=== PATIENT | female | born 1990 | race Caucasian/White ===

== ENCOUNTER 2021-08-02 11:18 | Outpatient (CLI) | payer BC, SELFPAY ==
[2021-08-02 11:43] LABS: Basophils Percent Auto 0.5 % (0.2-1.2); Eosinophils Percent Auto 0.2 % (0-4.4); Hematocrit 38.9 % (37.0-47.0); Hemoglobin 13.4 g/dL (12.0-15.0); Immature Granulocyte Absolute 0.02 K/mm3 (0.00-0.031); Immature Granulocyte Percent A 0.3 % (0-0.5); Lymphocytes Absolute Auto 1.08 K/mm3 (0.9-3.2); Lymphocytes Percent Auto 17.6 % (18.3-44.2); Mean Corpuscular HGB Conc 34.4 g/dl (32-36); Mean Corpuscular Hemoglobin 30.6 pg (26-34); Mean Corpuscular Volume 88.8 fl (80-100); Mean Platelet Volume 11.3 fl (7.4-10.4); Monocytes Absolute Auto 0.2 K/mm3 (0.1-0.6); Monocytes Percent Auto 3.9 % (2.6-8.5); Neutrophils Absolute Auto 4.8 K/mm3 (1.3-6.7); Neutrophils Percent Auto 77.5 % (45.5-73.1); Platelet Count Result 162 k/mm3 (150-375); Red Blood Count 4.38 M/mm3 (4.2-5.4); Red Cell Distribution Width 11.9 % (11.5-14.5); White Blood Count 6.2 K/mm3 (4.5-10.0)
[2021-08-02 12:40] LABS: HIV 1/2 Ab P24 Ag Result Negative (Negative)
[2021-08-02 13:05] LABS: Hepatitis B Surface Antigen Negative (Negative); Rubella IgG Antibody 26.2 IU/ML
[2021-08-03 06:02] LABS: Rapid Plasma Reagin Non-Reactive (NonReactive)
[2021-08-13 13:27] LABS: SMA Results Received Complete
[2021-08-13 18:20] LABS: CF Result NEGATIVE (NEGATIVE)
== END 2021-08-02 11:19 | disposition home or self-care (01) ==
PROVIDERS: PCP Family Medicine; Visit Provider Obstetrics & Gynecology
DX: N94.89 Other specified conditions associated with female genital organs and menstrual cycle (principal)
CPT/HCPCS: 36415; 81220; 81329; 84702; 85025; 86592; 86644; 86703; 86747; 86762; 86787; 86850; 86900; 86901; 87340; G0432

== ENCOUNTER 2021-12-07 08:49 | Outpatient (CLI) | payer BC, SELFPAY ==
[2021-12-07 10:19] LABS: Basophils Percent Auto 0.5 % (0.2-1.2); Eosinophils Percent Auto 0.5 % (0-4.4); Hematocrit 33.1 % (37.0-47.0); Immature Granulocyte Absolute 0.04 K/mm3 (0.00-0.031); Immature Granulocyte Percent A 0.5 % (0-0.5); Lymphocytes Absolute Auto 1.23 K/mm3 (0.9-3.2); Mean Corpuscular HGB Conc 33.2 g/dl (32-36); Mean Corpuscular Volume 90.2 fl (80-100); Mean Platelet Volume 10.1 fl (7.4-10.4); Monocytes Absolute Auto 0.5 K/mm3 (0.1-0.6); Monocytes Percent Auto 5.1 % (2.6-8.5); Neutrophils Percent Auto 79.4 % (45.5-73.1); Platelet Count Result 158 k/mm3 (150-375); Red Blood Count 3.67 M/mm3 (4.2-5.4); Red Cell Distribution Width 11.9 % (11.5-14.5); White Blood Count 8.8 K/mm3 (4.5-10.0)
[2021-12-07 10:26] LABS: Glucose 1 Hour PP 50gm Dose 151 mg/dL
[2021-12-07 11:07] LABS: HIV 1/2 Ab P24 Ag Result Negative (Negative)
== END 2021-12-07 08:50 | disposition home or self-care (01) ==
LOC: ANHLAB 08:51
PROVIDERS: PCP Family Medicine; Visit Provider Obstetrics & Gynecology
DX: Z34.90 Encounter for supervision of normal pregnancy, unspecified, unspecified trimester (principal); Z3A.00 Weeks of gestation of pregnancy not specified
CPT/HCPCS: 36415; 82947; 85025; 86703; G0432

== ENCOUNTER 2021-12-10 08:17 | Outpatient (CLI) | payer BC, SELFPAY ==
[2021-12-10 08:53] LABS: Glucose Fasting Gestational 80 mg/dL (>/=95)
[2021-12-10 10:25] LABS: Glucose 1 Hour Gest 190 mg/dL (>/=180)
[2021-12-10 11:11] LABS: Glucose 2 Hour Gest 148 mg/dL (>/= 155)
[2021-12-10 12:15] LABS: Glucose 3 Hour Gest 171 mg/dL (>/=140)
== END 2021-12-10 08:18 | disposition home or self-care (01) ==
LOC: ANHLAB 08:19
PROVIDERS: PCP Family Medicine; Visit Provider Obstetrics & Gynecology
DX: O99.810 Abnormal glucose complicating pregnancy (principal); Z3A.00 Weeks of gestation of pregnancy not specified
CPT/HCPCS: 36415; 82951; 82952

== ENCOUNTER 2022-02-21 13:25 | Outpatient (RCR) | payer BC, SELFPAY ==
[2022-02-14 10:01] VITALS: BP 109/75; PULSE 84
[2022-02-17 15:09] VITALS: BP 120/80; PULSE 103
[2022-02-21 14:06] LABS: Mean Corpuscular HGB Conc 32.3 g/dl (32-36); Mean Corpuscular Hemoglobin 25.8 pg (26-34); Mean Corpuscular Volume 80.1 fl (80-100); Mean Platelet Volume 11.3 fl (7.4-10.4); Platelet Count Result 182 k/mm3 (150-375); Red Blood Count 3.87 M/mm3 (4.2-5.4); White Blood Count 8.8 K/mm3 (4.5-10.0)
[2022-02-21 14:25] VITALS: BP 123/83; PULSE 102
[2022-02-22 07:11] LABS: Rapid Plasma Reagin Non-Reactive (NonReactive)
== END 2022-03-23 10:12 | disposition home or self-care (01) ==
LOC: ANHOBOP 13:25
PROVIDERS: PCP Family Medicine; Visit Provider Obstetrics & Gynecology
DX: O36.5930 Maternal care for other known or suspected poor fetal growth, third trimester, not applicable or unspecified (principal); Z3A.37 37 weeks gestation of pregnancy; Z3A.38 38 weeks gestation of pregnancy
CPT/HCPCS: 36415; 59025; 85027; 86592; 86850; 86900; 86901

== ENCOUNTER 2022-02-23 05:17 | Inpatient (IN) | payer BC, SELFPAY ==
--- NOTE | 2022-02-22 15:09 | PM.IMHP ---
H&P: HPI History of Present Illness Date/Time: 02/22/22 15:09 31-year-old female 2 para 1001 at 39 weeks gestation presents for repeat delivery. Also desires permanent sterilization in the form of bilateral salpingectomy, And we have discussed the permanence failure rate increased risk of ectopic and regret and patient consents to the procedure. care complicated by gestational diabetes which has been diet controlled with excellent results. No other issues or concerns with her care. Chief Complaint: Review of Systems Review of Systems: All systems reviewed & are unremarkable except as noted in HPI and below PMFSH Past Medical History Medical History Abnormal glucose tolerance in Anxiety disorder delivery delivered 04/15/17 arrest of dilation Depression Elbow fracture Ovarian cyst Remove/insert IUD 03/17/20 insertion 10/28/20 removal Suppression of menstruation Surgical History Surgical History Delivery by section (04/15/17) arrest of dilation History of placement of ear tubes 1994 bilateral Social History Social History Smoking status: Never smoker Alcohol intake: never Substance use: never Substance use type: does not use Additional living arrangements comments: spouse 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 Gender identity (if verbalized by the patient): Female Sexual Orientation (if Verbalized by the Patient): Straight or Heterosexual Spiritual care concerns: No Meds Home Medications and Allergies Home Medications Medication Instructions Recorded Confirmed Type vitamins-iron fumarate 65 1 tablet PO DAILY 07/26/21 02/21/22 History mg iron-folic acid 1 mg tablet Allergies Allergy/AdvReac Type Severity Reaction Status Date / Time amoxicillin Allergy Severe STOP Verified 02/21/22 09:20 BREATHING cefixime Allergy Severe STOP Verified 02/21/22 09:20 BREATHING Penicillins Allergy Severe STOP Verified 02/21/22 09:20 BREATHING Exam Const: General: cooperative, healthy appearing and comfortable Resp: Effort & Inspection: normal respiratory effort Auscultation: clear to auscultation bilaterally Cardio: Rate: regular rate Rhythm: regular rhythm GI: Inspection: normal to inspection Auscultation: normal bowel sounds : Bimanual exam- vagina & uterus: enlarged ( fundal height 40cm heart tones 130) Assessment and Plan Assessment and plan (1) 39 weeks gestation of : Code(s): Z3A.39 - 39 weeks gestation of Status: Acute (2) Previous delivery, antepartum: Code(s): O34.219 - Maternal care for unspecified type scar from previous delivery Status: Acute Assessment and Plan: proceed with repeat delivery. (3) Encounter for female sterilization procedure: Code(s): Z30.2 - Encounter for sterilization Status: Acute Assessment and Plan: Bilateral salpingectomy to be performed.
[2022-02-23] VITALS (57 sets, daily range): BP systolic 97–117; BP diastolic 42–92; PULSE 33–188; RESP 12–18; TEMP 36.3–36.8; O2SAT 84–100; BMI 31.6
--- OUTSIDE RECORDS SUMMARY | 2022-02-23 05:23 | XMS_ITS ---
:1990 Author Care Team Providers Name Role Phone Dixon Cardenas Primary Care Provider Unavailable Allergies Code Code System Name Reaction Severity Status Onset 723 RxNorm Amoxicillin ? ? Active ? Penicillins ? ? Active ? 951317 RxNorm Suprax ? ? Active ? Notes: Some allergies listed in Docume nt: #[id number] could not be added to this patient's chart. Please review this docu ment and add these allergies to the patient's chart manually as needed. Medications Name Status Start Date Stop Date ? ? Adacel (Tdap Adolesn/Adult)(PF)2 Completed ? 05/31/2017 Lf-(2.5-5-3-5)-5 Lf/0.5 mL IM syringe alprazolam 0.25 mg tablet Completed ? 2019 Aviane 0.1 mg-20 mcg tablet Completed ? 10/24 azithromycin 250 mg tablet Completed ? 08/07 cephalexin 500 mg capsule Completed ? 2016 cyclobenzaprine 10 mg tablet Completed ? cyclobenzaprine 5 mg tablet Unknown ? Not available Take 1 tablet 3 times a day by oral route. erythromycin 5 mg/gram (0.5 %) eye ointment Completed ? 09/19/2016 fluconazole 150 mg tablet Active ? Not av ailable TAKE 1 TABLET BY MOUTH ONCE DAILY FOR 3 DAYS Fluzone Quad (PF) 60 mcg (15 mcg x Active ? Not available 4)/0.5 mL IM syringe Fluzone Quad (PF) 60 mcg (15 mcg x Active ? Not available 4)/0.5 mL IM syringe hydrocodone 5 mg-acetaminophen 325 mg tablet Completed ? 05/02/2017 ID NOW COVID-19 Test Kit Active ? Not sathish ilable TEST DIRECTED TODAY Jencycla 0.35 mg tablet Completed ? 02/13/20 ketorolac 10 mg tablet Completed ? 0
--- OUTSIDE RECORDS SUMMARY | 2022-02-23 05:23 | XMS_ITS ---
:1990 Author Care Team Providers Name Role Phone Dixon Cardenas Primary Care Provider Unavailable Allergies Code Code System Name Reaction Severity Status Onset 723 RxNorm Amoxicillin ? ? Active ? Penicillins ? ? Active ? 019551 RxNorm Suprax ? ? Active ? Notes: Some allergies listed in Docume nt: #[id number] could not be added to this patient's chart. Please review this docu ment and add these allergies to the patient's chart manually as needed. Medications Name Status Start Date Stop Date ? ? Adacel (Tdap Adolesn/Adult)(PF)2 Lf-(2.5-5-3-5)-5 Lf/0.5 Complet ed ? 05/31/2017 mL IM syringe alprazolam 0.25 mg tablet Completed ? 2019 Aviane 0.1 mg-20 mcg tablet Completed ? 10/24 azithromycin 250 mg tablet Completed ? 08/07 cephalexin 500 mg capsule Completed ? 2016 cyclobenzaprine 10 mg tablet Completed ? cyclobenzaprine 5 mg tablet Unknown ? Not available TK 1 T PO TID erythromycin 5 mg/gram (0.5 %) eye ointment Completed ? 09/19/2016 Fluzone Quad (PF) 60 mcg (15 mcg x 4)/0.5 mL IM syring e Active ? Not available PHARMACIST ADMINISTERED IMMUNIZATION ADMINISTERED AT TIME OF DI SPENSING Fluzone Quad (PF) 60 mcg (15 mcg x 4)/0.5 mL IM syring e Active ? Not available PHARMACY ADMINISTERED hydrocodone 5 mg-acetaminophen 325 mg tablet Completed ? 05/02/2017 Jencycla 0.35 mg tablet Completed ? 02/13/20 18 ketorolac 10 mg tablet Completed ? 0 L norgest/E estradiol-E estrad 0.15 mg-30 mcg (84)/10 mcg(7) tabs,3mos Completed ? 02/21/2020 TAKE 1 TABLET BY MOUTH ONCE DAILY levofloxacin 250 m
--- NOTE | 2022-02-23 06:09 | LDADM ---
This patient, Myranda Kerr, was admitted to Labor/Delivery/Recovery 120 on 02/23/22 at 05:17. Plans for labor, pain management and were discussed with patient. Patient/family oriented to hospital policies and general routines including ID bracelet, bed and alarms, visiting hours, pain management, procedures, bathroom and other care routines, personal items, smoking policy, room service/diet and guest tray routines, security routines, and visiting hours. Patient/Family are encouraged to report perceived risks to care and to ask questions if they do not understand what they are told or what they should do. See OBIX for further documentation.
[2022-02-23] MEDS: LACTATED RINGERS 1,000 ML 125 ML IV CONT (06:39)
--- NOTE | 2022-02-23 07:19 | P.PNAN_ITS ---
Anes - Initial Pre Proc Eval Procedure: Operation Date: 02/23/22 07:30 Proposed Procedures p Repeat Section with Tubal Ligation - Dixon Cardenas MD Date/Time: 02/23/22 07:19 Surgeon: Dixon Cardenas MD Pre Op Diagnosis: C/S Patient Data Age: 31 Gender: F Height: 1.5 m Weight: 71 kg Last Vital Signs Temp 36.7 C 02/23/22 06:07 Pulse 96 02/23/22 07:16 Resp 16 02/23/22 06:07 BP 112/74 02/23/22 07:16 O2 Del Method Room Air 02/23/22 06:07 Allergies Allergy/AdvReac Type Severity Reaction Status Date / Time amoxicillin Allergy Severe STOP Verified 02/23/22 06:13 BREATHING cefixime Allergy Severe STOP Verified 02/23/22 06:13 BREATHING Penicillins Allergy Severe STOP Verified 02/23/22 06:13 BREATHING Home Medications Medication Instructions Recorded Confirmed Type vitamins-iron fumarate 65 1 tablet PO DAILY 07/26/21 02/23/22 History mg iron-folic acid 1 mg tablet Patient hx anesthesia problems: none Family hx anesthesia problems: none Results Review: All pre-operative results and documents have been reviewed as part of the pre- operative evaluation. [facility] Past Medical History Medical History Abnormal glucose tolerance in Anxiety disorder delivery delivered 04/15/17 arrest of dilation Depression Elbow fracture Ovarian cyst Remove/insert IUD 03/17/20 insertion 10/28/20 removal Suppression of menstruation Surgical History Surgical History Delivery by section (04/15/17) arrest of dilation History of placement of ear tubes 1994 bilateral Social History Social History Smoking status: Never smoker Alcohol intake: never Substance use: never Substance use type: does not use Additional living arrangements comments: spouse 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 Gender identity (if verbalized by the patient): Female Sexual Orientation (if Verbalized by the Patient): Straight or Heterosexual Spiritual care concerns: No Anes - Eval Final PreProcedure Day of Procedure 02/23/22 07:19 Patient weight: overweight Heart: regular rate and rhythm Lungs: clear to auscultation Airway: Mallampati scale class II Neurological: alert and oriented Last oral intake: >/= 8 hours ASA classification: II Emergent: no Anesthetic plan: proceed Anesthesia type and monitoring: regional spinal and standard monitoring Results Review: All pre-operative results and documents have been reviewed as part of the pre- operative evaluation. Informed Consent: The patient's anesthetic plan and its attendant risks and benefits were discussed with the patient/family/POA. Questions were solicited and answers provided to the satisfaction of the patient/family/POA.
[2022-02-23] MEDS: CLINDAMYCIN 900 MG/D5W 50 ML 900 MG/50 ML PIGGYBACK 50 MG IVPB (07:25)
--- NOTE | 2022-02-23 07:28 | WPDHPUPDATE1 ---
History and Physical Update Update Date/Time: 02/23/22 07:28 History and Physical has been reviewed, including an updated exam of the patient. There are NO changes in the patient's condition. Risks, benefits, and alternatives have been discussed and questions answered. Patient agrees to proceed with procedure.
[2022-02-23] MEDS: KETOROLAC 30 MG/ML VIAL (*BKC) 15 MG IV PUSH (08:09)
--- NOTE | 2022-02-23 08:44 | P.PCNOB_ITS ---
OB - Delivery Note Procedure Procedure: Procedures Operation Date: 02/23/22 07:30 <No data on this case meets the specified criteria> 1. Repeat low transverse section 2. Bilateral salpingectomy Events: Previous Delivery Delivery monitor: External FHT Route of delivery: Specimen: Yes ( 1. Tubes bilateral 2. Placenta) Quantitative Blood Loss (ml): 385 Anesthesia type: Spinal Disposition: PACU Complications: None Narrative: patient prepped draped usual manner for this procedure. Pfannenstiel incision was made and carried down to the fascia. Extended bilaterally the length of the skin incision. Moderate amount of adhesive disease was noted and sharply and bluntly dissected. peritoneum was entered And bladder flap was developed. uterus was scored with clear fluid noted and vertex was delivered without difficulty. Rest of baby was delivered cord clamped and cut and placenta manually removed. Uterus was exteriorized cleared of membranes and clots and closed using 0 Monocryl in a running interlocking manner with good approximation hemostasis noted. Small area of oozing on the left edge was rendered hemostatic using a [id number] suture with hemostasis achieved. Bilaterally tubes were then grasped and using 0 plain suture doubly ligated and the distal portion of the tube was removed. Uterus was turned to the abdomen gutters were cleared of serosanguineous fluid and clots and the uterine incision again noted to be hemostatic. All subfascial tissue she was noted be hemostatic and fascia was approximated 0 Vicryl from the left angle to midline and from the to the midline. Subcutaneous tissue was cauterized of small bleeders and approximating using 0 plain suture. Rachel were then used to approximate the skin edges and the patient was sent to recovery room after dressing was placed. [place] Baby Weeks of gestation at delivery: 39 gender: Female Weight (pounds): 7 Weight (ounces): 3 presentation: vertex Placenta delivery description: Manual Removal Cord Vessel Description: 3 Vessels score one minute: 8 score five minutes: 9 AMG Delivery Billing Delivery Delivery: Delivery Charge
[2022-02-23] MEDS: MORPHINE SULFATE INJ (*CRX) 10 MG/ML AMP 3 MG IV PUSH ×4 (09:45→11:04)
[2022-02-23] MEDS: ONDANSETRON INJ 4 MG/2 ML VIAL IV PUSH ×2 (09:49→13:49)
[2022-02-23] MEDS: OXYTOCIN 30 UNITS/NS 500 ML 30 UNITS/500 ML BAG 125 UNITS IV CONT (10:07)
--- NOTE | 2022-02-23 10:52 | PC.NURSE ---
Report given to JERRELL Walker
[2022-02-23] MEDS: KETOROLAC 30 MG/ML VIAL (*BKC) IV PUSH ×2 (12:19→18:46)
[2022-02-23] MEDS: DEXTROSE 5%/0.45% SOD CHL 1,000 ML 125 ML IV CONT (14:56)
[2022-02-23] MEDS: DOCUSATE SODIUM 100 MG CAPSULE PO (14:57)
[2022-02-23] MEDS: MULTIVIT/MIN/PREN/FOL AC/IRON TABLET 1 TAB PO (14:57)
[2022-02-23] MEDS: HYDROcodone/acetaminophen (*CRX) 5-325 MG TABLET 1 TAB PO (22:07)
[2022-02-24] MEDS: HYDROcodone/acetaminophen (*CRX) 10-325 MG TABLET 1 TAB PO (04:08)
[2022-02-24 04:30] VITALS: BP 98/58; PULSE 65; RESP 16; TEMP 36.7
[2022-02-24 05:30] LABS: Basophils Percent Auto 0.3 % (0.2-1.2); Eosinophils Percent Auto 0.1 % (0-4.4); Hematocrit 30.7 % (37.0-47.0); Hemoglobin 9.7 g/dL (12.0-15.0); Immature Granulocyte Absolute 0.05 K/mm3 (0.00-0.031); Immature Granulocyte Percent A 0.4 % (0-0.5); Lymphocytes Absolute Auto 1.12 K/mm3 (0.9-3.2); Lymphocytes Percent Auto 9.5 % (18.3-44.2); Mean Corpuscular HGB Conc 31.6 g/dl (32-36); Mean Corpuscular Hemoglobin 25.9 pg (26-34); Mean Corpuscular Volume 82.1 fl (80-100); Mean Platelet Volume 11.8 fl (7.4-10.4); Monocytes Absolute Auto 0.7 K/mm3 (0.1-0.6); Monocytes Percent Auto 6.3 % (2.6-8.5); Neutrophils Absolute Auto 9.8 K/mm3 (1.3-6.7); Neutrophils Percent Auto 83.4 % (45.5-73.1); Platelet Count Result 169 k/mm3 (150-375); Red Blood Count 3.74 M/mm3 (4.2-5.4); Red Cell Distribution Width 13.1 % (11.5-14.5); White Blood Count 11.8 K/mm3 (4.5-10.0)
--- NOTE | 2022-02-24 07:29 | P.PNAN_ITS ---
Anes - Prog Note Post-Op Date/Time: 02/24/22 07:29 Cardiovascular status: normal Respiratory status: normal Airway patency: baseline Mental status: baseline Post-Op hydration status: normal Vital Signs: Last Vital Signs Temp 36.7 C 02/24/22 04:30 Pulse 65 02/24/22 04:30 Resp 16 02/24/22 04:30 BP 98/58 L 02/24/22 04:30 Pulse Ox 97 02/23/22 16:40 O2 Del Method Room Air 02/23/22 23:55 Pain Score (VAS): 1 I/O: Intake & Output 02/23/22 02/23/22 02/24/22 15:59 23:59 07:59 Intake Total 240 1900 1250 Output Total 250 2250 1025 Balance -10 -350 225 Laboratory Tests 02/24/22 04:16 02/24/22 04:16 WBC 11.8 H RBC 3.74 L Hgb 9.7 L Hct 30.7 L MCV 82.1 MCH 25.9 L MCHC 31.6 L RDW 13.1 Plt Count 169 MPV 11.8 H Immature Gran % (Auto) 0.4 Neut % (Auto) 83.4 H Lymph % (Auto) 9.5 L [place] % (Auto) 6.3 Eos % (Auto) 0.1 Baso % (Auto) 0.3 Lymph # (Auto) 1.12 [place] # (Auto) 0.7 H Eos # (Auto) 0.0 Baso # (Auto) 0.0 Abs Immat Gran (auto) 0.05 H Absolute Neuts (auto) 9.8 H Absolute Nucleated RBC 0.0 Nucleated RBC % 0.0 Post-procedural complaints: none Patient Feedback: Patient satisfied with anesthetic care.
--- NOTE | 2022-02-24 07:29 | WPDANLDPN2 ---
Anes-Prog Note L&D Date/Time: 02/24/22 07:29 Comfortable throughout: section Neuraxial method: spinal Epidural/Spinal procedure site: clean & non-tender Neuro status: Neuro function grossly intact. Cardiovascular status: normal Respiratory status: normal Airway patency: baseline Mental status: baseline Post-Op hydration status: normal Vital Signs: Last Vital Signs Temp 36.7 C 02/24/22 04:30 Pulse 65 02/24/22 04:30 Resp 16 02/24/22 04:30 BP 98/58 L 02/24/22 04:30 Pulse Ox 97 02/23/22 16:40 O2 Del Method Room Air 02/23/22 23:55 Pain score (VAS): 1 I/O: Intake & Output 02/23/22 02/23/22 02/24/22 15:59 23:59 07:59 Intake Total 240 1900 1250 Output Total 250 2250 1025 Balance -10 -350 225 Post-procedural complaints: none Patient feedback: Patient satisfied with anesthetic care.
--- NOTE | 2022-02-24 07:30 | WPDANLDNPN2 ---
Anes-Prog Note L&D-Neuraxial Date/Time: 02/24/22 07:30 Neuraxial medications: intrathecal PF morphine Opiod-related complaints: pruritis Patient feedback: Patient satisfied with post-operative pain management.
--- NOTE | 2022-02-24 07:59 | PM.OBDSVD ---
DS: Admitting Diagnosis Discharge Date 02/25/2022 Admitting Diagnosis OB - DS: Summary OB Procedures : None OB Procedures Intrapartum: and Tubal ligation OB Procedures: : None Peripartum Data Procedures: Procedures Operation Date: 02/23/22 07:30 Actual Procedure Side Surgeon p Section Bilateral Dixon Cardenas MD Time Spent with Patient Time attestation: Total time spent providing and/or coordinating discharge services: DS: Data Data Completed and Pending Pending studies at discharge: Pending at discharge 02/23/22 09:09 Surgical [PTH] Routine Labs on day of discharge: Labs from last 24 hours 02/24/22 04:16 WBC 11.8 H RBC 3.74 L Hgb 9.7 L Hct 30.7 L MCV 82.1 MCH 25.9 L MCHC 31.6 L RDW 13.1 Plt Count 169 MPV 11.8 H Immature Gran % (Auto) 0.4 Neut % (Auto) 83.4 H Lymph % (Auto) 9.5 L Nelson % (Auto) 6.3 Eos % (Auto) 0.1 Baso % (Auto) 0.3 Lymph # (Auto) 1.12 Nelson # (Auto) 0.7 H Eos # (Auto) 0.0 Baso # (Auto) 0.0 Abs Immat Gran (auto) 0.05 H Absolute Neuts (auto) 9.8 H Absolute Nucleated RBC 0.0 Nucleated RBC % 0.0 Discharge Plan Discharge Discharging Clinician: Dixon Cardenas Patient Disposition: Home, Self-Care Activity: as tolerated Diet: as tolerated Wound Care Instructions: other - see discharge instructions Discharge Instructions: office one week for removal of dressing/arlene Patient Instructions: Antibiotic Form Stand Alone Forms: General Discharge Information Follow-up/Referrals: Dixon Cardenas MD [Physician] - 3 Weeks Discharge Medications: New hydrocodone-acetaminophen 5-325 mg Tablet 1 tablet PO Q3H PRN (Reason: Moderate Pain (4-6)) Qty: 30 0RF ibuprofen 600 mg Tablet 600 mg PO Q6H PRN (Reason: Cramping) Qty: 30 0RF Continued vit-iron fum-folic ac 65 mg iron- 1 mg tablet 1 tablet PO DAILY Date of admission: 02/23/22 05:17 Primary Care Provider: Lonnie,Minor Nair Admitting Provider: Dixon Cardenas Attending physician on admission: Dixon Cardenas Condition: Stable
[2022-02-24 08:40] VITALS: BP 103/68; PULSE 85; RESP 16; TEMP 36.6; O2SAT 100
[2022-02-24] MEDS: DOCUSATE SODIUM 100 MG CAPSULE PO ×2 (09:35→17:17)
[2022-02-24] MEDS: POLYSACCHARIDE IRON COMPLEX 150 MG CAPSULE PO ×2 (09:35→17:17)
[2022-02-24] MEDS: MULTIVIT/MIN/PREN/FOL AC/IRON TABLET 1 TAB PO (09:35)
[2022-02-24] MEDS: IBUPROFEN 600 MG TABLET PO ×2 (09:36→17:17)
[2022-02-24] MEDS: HYDROcodone/acetaminophen (*CRX) 5-325 MG TABLET 1 TAB PO ×3 (09:36→20:30)
--- NOTE | 2022-02-24 09:43 | PC.NURSE ---
Introductions were made this morning. Consulted with patient to assess needs related to . Mother led the conversation with her?plans to feed?her infant and states the?experience so far has been going well nursing without pain. Resources provided for inpatient and outpatient services using a resource guide and mom/baby guide. Mother voiced understanding of information and will call if there is a request for assistance. Reported to primary RN.
[2022-02-24 20:20] VITALS: BP 114/70; PULSE 92; RESP 18; TEMP 36.6; O2SAT 99
[2022-02-25 00:15] VITALS: BP 105/64; PULSE 80; RESP 16; TEMP 36.6; O2SAT 99
[2022-02-25] MEDS: IBUPROFEN 600 MG TABLET PO ×2 (00:48→08:41)
[2022-02-25 04:00] VITALS: BP 111/62; PULSE 72; RESP 16; TEMP 36.9; O2SAT 99
[2022-02-25 07:25] VITALS: BP 102/74; PULSE 76; RESP 16; TEMP 37.2; O2SAT 97
[2022-02-25] MEDS: MULTIVIT/MIN/PREN/FOL AC/IRON TABLET 1 TAB PO (08:40)
[2022-02-25] MEDS: POLYSACCHARIDE IRON COMPLEX 150 MG CAPSULE PO (08:40)
[2022-02-25] MEDS: DOCUSATE SODIUM 100 MG CAPSULE PO (08:40)
[2022-02-25] MEDS: HYDROcodone/acetaminophen (*CRX) 5-325 MG TABLET 1 TAB PO (08:43)
--- NOTE | 2022-02-25 09:30 | PC.NURSE ---
Patient viewed the discharge video Mother & Baby Care, The First Two Weeks . Patient was given the opportunity and encouraged to ask questions. Patient verbalized understanding of information shared and has been given the mother/baby guide for home reference.
[2022-02-26 10:18] VITALS: BP 114/78; PULSE 93; RESP 20; TEMP 36.8; O2SAT 98
--- NOTE | 2022-03-03 09:23 | PM.OBDSVD ---
DS: Admitting Diagnosis Discharge Date 02/25/22 Admitting Diagnosis OB - DS: Summary OB Procedures : None OB Procedures Intrapartum: (With tubal ligation) OB Procedures: : None Peripartum Data Procedures: Procedures Operation Date: 02/23/22 07:30 Actual Procedure Side Surgeon p Section Bilateral Dixon Cardenas MD Time Spent with Patient Time attestation: Total time spent providing and/or coordinating discharge services: DS: Data Data Completed and Pending Completed studies during hospitalization: Pending at discharge 02/23/22 09:09 Surgical [PTH] Routine Discharge Plan Discharge Consulting providers: Richard Smith ; Jayshree Botello Discharging Clinician: Dixon Cardenas Patient Disposition: Home, Self-Care Activity: as tolerated Diet: as tolerated Wound Care Instructions: other - see discharge instructions Discharge Instructions: Education: Mom and Baby Guide Given to: Mother Follow-Up: Call your delivering provider's office for an appointment to be seen in: 1 Week Mom and baby should come to the [facility] for the follow-up appointment. Appointment Date/Time: February 26, 2022 at 10:00 am What to expect at your follow-up visit: Blood Pressure Check Physical Assessment Call [phone] if you are unable to keep your appointment time. BREAST CARE: * Wear a snug supportive bra. * For engorgement discomfort: Breast Feeding: * Apply warm moist washcloths * Express milk as needed to relieve engorgement * Wear loose clothing Bottle Feeding: * May apply ice packs * For sore nipples: * Identify correct latch-on * Apply warm moist washcloths before and after nursing * Air dry nipples after nursing * May apply Lansinoh cream to nipples ABDOMINAL INCISION: (if applicable) * Allow incision to air dry * Do NOT use lotions for powders on your incision * When showering, allow soap and water to run over the incision, but do not wash incision EPISIOTOMY/PERINEAL CARE: * Until bleeding stops, use your shandra bottle after urinating * Change your pad frequently throughout the day * You may take sitz baths several times a day (fill your bathtub with warm water and soak for 20 minutes.) Do NOT bathe in the water * No tub baths until seen by your physician - You may shower ACTIVITY: * Rest as much as possible. * Do not exercise or lift anything heavier than your baby (such as laundry or other children.) * Avoid stairs or driving as much as possible. * Do not put anything into the vagina. No douching, tampons, or sexual activity until seen by physician. NOTIFY PHYSICIAN IF YOU HAVE ANY QUESTIONS OR IF ANY OF THE FOLLOWING SYMPTOMS OCCUR: * If your episiotomy or incision becomes red, swollen, or more painful than what you have experienced in the hospital. * If your vaginal bleeding becomes foul smelling. * If your vaginal bleeding becomes more heavy than a period or if your bleeding changes from pink to bright red. However, you may pass an occasional walnut-sized clot once or twice for the first week . * If you experience a sharp, shooting pain in you calves. * If you discover a hard, reddened area on your breast or if you experience flu-like symptoms. DIET: * Eat regular, well-balanced meals. * Drink plenty of fluids daily. If , drink to thirst. *Make an appointment at Dr Cardenas's office in one week for removal of dressing/arlene Patient Instructions: (DC) Stand Alone Forms: General Discharge Information Follow-up/Referrals: Dixon Cardenas MD [Physician] - 3 Weeks Discharge Medications: New hydrocodone-acetaminophen 5-325 mg Tablet 1 tablet PO Q3H PRN (Reason: Moderate Pain (4-6)) Qty: 30 0RF ibuprofen 600 mg Tablet 600 mg PO Q6H PRN (Reason: Cramping) Qty: 30 0RF Continued
== END 2022-02-25 10:06 | disposition home or self-care (01) | DRG 785 ==
LOC: ANHLDR 05:21 → ANHOB2 11:27
PROVIDERS: Admitting Provider Obstetrics & Gynecology; PCP Family Medicine; Visit Provider Obstetrics & Gynecology
PROC: 10D00Z1 Extraction of Products of Conception, Low, Open Approach (ICD-10-PCS; CPT 59514; principal; 2022-02-23 07:30)
DX: O34.219 Maternal care for unspecified type scar from previous cesarean delivery (principal); Z30.2 Encounter for sterilization; O24.420 Gestational diabetes mellitus in childbirth, diet controlled; Z3A.39 39 weeks gestation of pregnancy; Z37.0 Single live birth
CPT/HCPCS: 36415; 85025; 88302; A9270; J1580; J1885; J2270; J2274; J2370; J2405; J2590; J7120

== ENCOUNTER 2024-09-04 14:12 | Outpatient (CLI) | payer BC, SELFPAY ==
--- OUTSIDE RECORDS SUMMARY | 2024-09-04 15:58 | XMS_ITS | Encounter Summary ---
Author Organization [facility] Address [facility] [place] [address] Care Team Providers Care Systems Engineering Manager Name Role Phone Glen Lo MD Primary Care Provider [phone] Minor Fleming MD Primary Care Provider [phone] Encounter Details Date Type Department Care Team (Late st Contact Info) Description 04/29/2017 [place] [address] , Generic ConversionMD Social History Tobacco Use Types Packs/Day Years Used Date Smoking Tobacco: Never Assessed Comments Unknown Sex and Gender Information Value Date Recorded Sex Assigned at Not on file Legal Sex Female 9:01 PM CDT Gender Identity Not on file Sexual Orientation Not on file documented as of this encounter Plan of Treatment Not on file documented as of this encounter Visit Diagnoses Not on filedocumented in this encounter Care Teams Systems Engineering Manager Relationship Specialty Start Date End Date Glen Lo MD PCP - General 07/26/14 07/03/18 [place] [address] [place] [address] PCP - General FAMILY PRACTICE 07/04/18 documented as of this encounter
--- OUTSIDE RECORDS SUMMARY | 2024-09-04 15:58 | XMS_ITS | Continuity of Care Document ---
Author Organization [facility] Address [address] [address] Phone Care Team Providers Care Assistant Drafter Name Role Phone Helen Douglass MD Unavailable Unavailable Advance Directives Directive Yes / No Effective Date File Name No Information Encounters Encounter Description Practice Location Reason(s) For Visit Diagnoses Date Provider Providers Copied on Encounter [facility], [address] [place] [address], [id number], tel:[phone] [address] [place] [address] No Information 3 Evonne Cervantes. [address] [place] [address], [id number] , . tel: [phone] Family History Family Member Type Diagnosis Age At Onset No Information Payers Payer name Insurance type Covered libertarian ID Authoriza tion(s) No Information Social History Type Description Quantity Date Captured Comments Sex Female Smoking Status No Information Chief Complaint And Reason For Visit No Information Reason For Referral Reason For Referral No Information History Of Present Illness Encounter Date Complaint History Of Prese nt Illness No Information Functional Status Date Functional Assessmen t No Information Instructions Date Instruction Additional Infor mation No Information Assessments Type Assessment Date No Information Patient Care Teams Name Effective Dates (start - stop) Status Members No Information
--- OUTSIDE RECORDS SUMMARY | 2024-09-04 15:58 | XMS_ITS | Clinical Summary ---
Author Organization [facility] Address [address] [place] [address] Care Team Providers Care Health Sanitarian Name Role Phone Minor Fleming MD Primary Care Provider [phone] Allergies Active Allergy Reactions Criticality Noted Date Comments Cefixime Shortness of Breath High 10/22/2015 Penicillins Hives,Rash Low 10/22/2015 Medications levonorgestrel (KATYA) 13.5 MG IUD Katya 14 mcg/24 hrs (3 yrs) 13.5 mg intrauterine device Take by intrauterine route. Active sertraline 50 MG tablet sertraline 50 mg tablet TAKE 1 TABLET BY MOUTH ONCE DAILY Active methylPREDNISol one, BRENNAN, 4 MG tabletIndicatio ns:Urticaria,Al lergic contact dermatitis, unspecified trigger 6 TABLETS ON DAY ONE, 5 TABLETS DAY TWO, 4 TABLETS DAY THREE, 3 TABLETS DAY FOUR, 2 TABLETS DAY FIVE, AND 1 TABLET DAY SIX 1 each 1 Active Active Problems No known active problems Immunizations Name Administration Dates Next Due Dtp 02/11/1994, 3,04/09/1993, 993 Fluzone 6 Months+ Quad (0.5 mL Prefilled Syringe) 05/03/2020 Influenza (Generic) 05/09/2023 Influenza Adult (Generic) 04/19/2021,05/03/2020, 04/12/2019 MMR 02/03/1998,02/11/1994 MMR (Generic) 02/25/2016 Opv 02/03/1998, 4,06/11/1993, 993,01/13/1993 PFIZER COVID-19 (ORIGINAL FORMULATION, PURPLE CAP) mRNA, LNP-S, PF, 30 MCG/0.3 ML DOSE 09/19/2020,08/27/2020 Polio Opv (Generic) 02/03/1998, 4,06/11/1993, 993,01/13/1993 Tdap (Generic) 01/26/2022,03/27/2017,02/25/2016 Social History Tobacco Use Types Packs/Day Years Used Date Smoking Tobacco: Never Smokeless Tobacco: Never Alcohol Use Standard Drinks/Week Comments No 0 (1 standard drink = 0.6 oz pur e alcohol) AUDIT-C Answer Date Recorded Frequency of Alcohol Consumption Never 07/05/2018 Average Number of Drinks Not on file 019 Frequency of Binge Drinking Not on file 06/26 PHQ-2 Answer Date Recorded PHQ-2 Score - If the patient scores above 3, please move on to questions 3-9 0 10/28/2020 Comments No Sex and Gender Information Value Date Recorded Sex Assigned at Not on file Legal Sex Female 9:01 PM CDT Gender Identity Not on file Sexual Orientation Not on file Last Filed Vital Signs Vital Sign Reading Time Taken Comments Blood Pressure 112/70 10/28/2020 9:50 AM CDT Pulse 90 10/28/2020 9:50 AM CDT Temperature 36.4 C (97.5 F) 10/28/2020 9:50 AM CDT Respiratory Rate 16 10/28/2020 9:50 AM CDT Oxygen Saturation 98% 10/28/2020 9:50 AM CDT Inhaled Oxygen Concentration - - Weight 59.6 kg (131 lb 6.4 oz) 10/28/2020 9:50 A M CDT Height 149.9 cm (4' 11 ) 10/28/2020 9:50 AM CDT Body Mass Index 26.54 10/28/2020 9:50 AM CDT Plan of Treatment Health Maintenance Due Date Last Done Comments Cervical Cancer Screening Pap Smear (Age 30 to 64) Every 3 Years 1992 PHQ-2 (Physician [place]) 2004 Hepatitis C 2010 Hepatitis B Vaccines (1 of 3 - 19+ 3-dose series) 11/07/2011 Annual Physical 07/20/2021 07/20/2020, 07/05/2018 Cervical Cancer Screening Pap with HPV Testing (Age 30 to 64) Every 5 Years 2022 Cervical Cancer Screening with HPV 2022 COVID-19 Vaccine ( - season) 2024 09/19/2020, 08/27/2020 Influenza Adult (#1) 2024 05/09/2023, 04/19/2021, 05/03/2020, Additional history exists PHQ-2 (Physician [place]) 06/26/2024 DTaP, Tdap and Td Vaccines (4 - Td or Tdap) 01/27/2032 01/26/2022, 03/27/2017, 02/25/2016, Additional history exists HPV Vaccines Aged Out No longer eligi ble based on patient's age to complete this topic Meningococcal B Vaccine Aged Out No l onger eligible based on patient's age to complete this topic Meningococcal Vaccine Aged Out No meet lavelle eligible based on patient's age to complete this topic Pneumococcal Vaccine: Pediatrics (0 to 5 Years) and At-Risk Patients (6 to 64 Years) Aged Out No longer eligible based on patient's age to complete this topic RSV Immunizations Under 20 Months Aged Out No longer eligible based on patient's age to complete this topic Insurance [facility] Care Teams Health Sanitarian Relationship Specialty [place] [address] [place] [address] PCP - General FAMILY PRACTICE 07/04/18
[2024-09-04 16:09] LABS: Basophils Absolute Auto 0.1 K/mm3 (0.0-0.1); Basophils Percent Auto 0.7 % (0.2-1.2); Eosinophils Percent Auto 0.3 % (0-4.4); Hematocrit 37.2 % (37.0-47.0); Hemoglobin 11.2 g/dL (12.0-15.0); Immature Granulocyte Absolute 0.01 K/mm3 (0.00-0.031); Immature Granulocyte Percent A 0.1 % (0-0.5); Lymphocytes Percent Auto 22.1 % (18.3-44.2); Mean Corpuscular HGB Conc 30.1 g/dl (32-36); Mean Corpuscular Hemoglobin 23.7 pg (26-34); Mean Corpuscular Volume 78.6 fl (80-100); Mean Platelet Volume 11.5 fl (7.4-10.4); Monocytes Absolute Auto 0.5 K/mm3 (0.1-0.6); Monocytes Percent Auto 6.6 % (2.6-8.5); Neutrophils Absolute Auto 4.8 K/mm3 (1.3-6.7); Neutrophils Percent Auto 70.2 % (45.5-73.1); Platelet Count Result 252 k/mm3 (150-375); Red Blood Count 4.73 M/mm3 (4.2-5.4); White Blood Count 6.8 K/mm3 (4.5-10.0)
== END 2024-09-04 14:13 | disposition home or self-care (01) ==
LOC: ANHLAB 14:13
PROVIDERS: PCP Family Medicine; Visit Provider Obstetrics & Gynecology
DX: N93.9 Abnormal uterine and vaginal bleeding, unspecified (principal)
CPT/HCPCS: 36415; 85025

== ENCOUNTER 2024-10-03 01:01 | Day surgery (SDC) | payer BC, SELFPAY ==
[2024-09-24 10:13] VITALS: BMI 28.5
--- NOTE | 2024-09-24 10:18 | PC.NURSE ---
Report to the Outpatient Waiting Room, entrance under the green pavilion located off [facility], at time _0800_ on date _10/03/24. Planned Procedure Time: _1000_.? Time changes happen often and if your time is changed the preop area will call you the afternoon before. - You and your visitor will be asked to self-screen and do not enter if you have any COVID symptoms. Please call surgeon if you need to reschedule. - A mask is optional within the hospital at this time. Patients may have clear liquids (water, carbonated beverages, clear teas, apple juice) until 3 hours prior to surgery with a maximum of 20 ounces. - No food from midnight until time of surgery and no smoking, or chewing tobacco (or any form of nicotine). No chewing gum, candy or mints. - Infants may have breast milk until 4 hours before surgery, infant formula 6 hours prior to surgery. - Children will be allowed to drink immediately following surgery.? If applicable, please bring a bottle or sippy cup to assist with drinking. Juice, water, soda, and popsicles are readily available.? For infants on formula, please bring formula the day of surgery.? Pacifiers are allowed. Take only the following medications with a SIP of water on the morning of surgery: NONE DO NOT STOP ANY OF YOUR OTHER PRESCRIPTION MEDICATIONS PRIOR TO SURGERY EXCEPT THE FOLLOWING Hold all vitamins and supplements for 3 days per anesthesiologist. Medications to discontinue per physician NONE Date to take last dose Please no make-up, nail new zealander, hairspray, perfume, deodorant, or body powder the day of surgery.? No jewelry (including any body piercings) or valuables the day of surgery, leave them at home.? Please take a shower or bath the night before, or the morning of, surgery with an antibacterial soap.? Wear comfortable, loose fitting clothing.? Children are encouraged to wear pajamas. - Jewelry must be removed prior to entering the operating room.? Rings and piercings that are not removed may be cut off. - The hospital will not accept responsibility for valuables.? - Please leave all valuables, including medications, at home the day of surgery. If you are going home after surgery, a licensed sanitation truck driver must drive you home.? - NO public transportation without another adult if you receive anesthesia. - We recommend that an adult stay with you for 24 hours following discharge. - We also recommend that you do not drive, make important decision, drink alcoholic beverages, or take any drugs that were not prescribed by your health care provider for at least 24 hours after your discharge time. For Pediatric surgeries, we recommend two adults accompany the child home. Follow any additional instructions given to you from your surgeon. Telephone instructions given to _PATIENT_and asked if any additional questions and then verbalized understanding. Patient advised to call surgeon office or pre surgery nurse liaison [phone] if any additional questions.
--- NOTE | 2024-10-01 17:22 | PM.IMHP ---
H&P: HPI History of Present Illness Date/Time: 10/01/24 17:22 33-year-old female 2 para 2002 presents for treatment heavy vaginal bleeding. States that she has had an IUD in the class which did not work well, and cycles are heavy and prolonged with a lot cramping and discomfort as well. Has had a tubal ligation. we have discussed, and patient declines, all nonsurgical measures. Chief Complaint: Menometrorrhagia Review of Systems Review of Systems: All systems reviewed & are unremarkable except as noted in HPI and below PMFSH Past Medical History Medical History Abnormal glucose tolerance in Suppression of menstruation Remove/insert IUD 03/17/20 insertion 10/28/20 removal delivery delivered 04/15/17 arrest of dilation Elbow fracture Ovarian cyst Depression Anxiety disorder Surgical History Surgical History Delivery by section (02/23/22) rpt c/s with bilateral salpingectomy Delivery by section (04/15/17) arrest of dilation History of placement of ear tubes 1994 bilateral Social History Social History Years smoked: 1 Smoking status: Former smoker Tobacco type: cigarettes Second hand tobacco smoke exposure: No Additional smoking assessment comments: STOPPED 2014 Alcohol intake: current Alcohol use details: 6 PER YR Substance use: never Substance use type: does not use Do You Feel Safe in your Home?: Yes Lack of Transportation: No Lack of Food: Never True Current Housing: I Have Housing Concerned About Future Housing: No Difficulty Paying Gas/Electric Bills: No Difficulty Paying for Meds: No Currently Unemployed: No Education: Associate Degree Difficulty w/ Childcare or Family Care: No Living arrangements: with family Additional living arrangements comments: spouse Occupation/Education: occupation 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 Gender identity (if verbalized by the patient): Female Sexual Orientation (if Verbalized by the Patient): Straight or Heterosexual Spiritual care concerns: No Meds Home Medications and Allergies Home Medications ?Medication ?Instructions ?Recorded ?Confirmed ?Type No Home Medications 09/24/24 09/24/24 History Allergies Allergy/AdvReac Type Severity Reaction Status Date / Time amoxicillin Allergy Severe STOP Verified 09/24/24 10:08 BREATHING cefixime Allergy Severe STOP Verified 09/24/24 10:08 BREATHING Penicillins Allergy Severe STOP Verified 09/24/24 10:08 BREATHING Exam Const: General: cooperative, healthy appearing and comfortable Resp: Effort & Inspection: normal respiratory effort Auscultation: clear to auscultation bilaterally Cardio: Rate: regular rate Rhythm: regular rhythm GI: Inspection: normal to inspection Auscultation: normal bowel sounds : External Female Exam: normal external appearance Speculum Exam - Vagina: normal appearance of the vagina Speculum Exam - Cervix: normal appearance of the cervix Bimanual exam- vagina & uterus: enlarged ( 8-10 week size) Bimanual Exam- Adnexa, other: normal adnexae Assessment and Plan Assessment and plan (1) Menometrorrhagia: Code(s): N92.1 - Excessive and frequent menstruation with irregular cycle Status: Acute (2) Dysmenorrhea: Code(s): N94.6 - Dysmenorrhea, unspecified Status: Acute (3) History of bilateral salpingectomy: Code(s): Z90.79 - Acquired absence of other genital organ(s) Status: Acute Plan 1. Hysteroscopy with uterine curettings 2. Endometrial ablation
--- OUTSIDE RECORDS SUMMARY | 2024-10-03 01:04 | XMS_ITS | Encounter Summary ---
Author Organization [facility] Address [facility]ly [facility] [place] [address] Care Team Providers Care Pigment Pusher Name Role Phone Glen Lo MD Primary Care Provider [phone] Minor Fleming MD Primary Care Provider [phone] Encounter Details Date Type Department Care Team (Late st Contact Info) Description 04/29/2017 Abstract [facility] [place] [address] , Generic ConversionMD Social History Tobacco Use [...] on filedocumented in this encounter Care Teams Pigment Pusher Relationship Specialty Start Date End Date Glen Lo MD PCP - General 07/26/14 07/03/18 [place] [address] [place] [address] PCP - General FAMILY PRACTICE 07/04/18 09/04/24 documented as of this encounter
--- OUTSIDE RECORDS SUMMARY | 2024-10-03 01:04 | XMS_ITS | Clinical Summary ---
Author Organization [facility] Address [address] [place] [address] Care Team Providers Care Grapple Skidder Operator Name Role Phone Unavailable Primary Care Provider Unavailabl e Allergies Active Allergy Reactions Criticality Noted Date [...] 30 to 64) Every 3 Years 1992 Hepatitis C 2010 Hepatitis B Vaccines (1 of 3 - 19+ 3-dose series) 11/07/2011 Annual Physical 07/20/2021 07/20/2020, 07/05/2018 Cervical Cancer Screening Pap with HPV Testing (Age 30 to 64) Every 5 Years 2022 Cervical Cancer Screening with HPV 2022 COVID-19 Vaccine ( season) 2024 09/19/2020, 08/27/2020 PHQ-2 (Physician [place]) 06/26/2024 DTaP, Tdap and Td Vaccines (4 [...]
--- OUTSIDE RECORDS SUMMARY | 2024-10-03 01:04 | XMS_ITS | Continuity of Care Document ---
Author Organization [facility] Address [address] [address] Phone Care Team Providers Care Capacitor Pack Press Operator Name Role Phone Helen Douglass MD Unavailable Unavailable Advance Directives Directive Yes / No Effective Date File Name No Information Encounters Encounter Description Practice Location Reason(s) For Visit Diagnoses Date Provider Providers Copied on Encounter [facility], [address] [place] [address], [id number], tel:[phone] [address] [place] [address] No Information 3 Evonne Cervantes. [address] [place] [address], [id number] , . tel:[phone] Family History Family Member Type Diagnosis Age At Onset No Information Payers Payer name Insurance type Covered democrat ID Authoriza tion(s) No Information Social History [...]
--- NOTE | 2024-10-03 06:08 | WPDHPUPDATE1 ---
History and Physical Update Update Date/Time: 10/03/24 06:08 History and Physical has been reviewed, including an updated exam of the patient. There are NO changes in the patient's condition. Risks, benefits, and alternatives have been discussed and questions answered. Patient agrees to proceed with procedure.
[2024-10-03 08:00] VITALS: BP 111/78; PULSE 93; RESP 14; TEMP 36.8; O2SAT 99
[2024-10-03] MEDS: LACTATED RINGERS 1,000 ML 30 ML IV CONT (08:00)
[2024-10-03] MEDS: ACETAMINOPHEN 500 MG TABLET 1000 MG PO (08:00)
--- NOTE | 2024-10-03 08:15 | SUR.PREOP ---
ok to give ancef 2gm per dr hernández.
--- NOTE | 2024-10-03 08:26 | WPDANESEPPF ---
Anes - Initial Pre Proc Eval Procedure: Operation Date: 10/03/24 08:30 Proposed Procedures p Hysteroscopy Dilation and Curettage with Alesia Endometrial Ablation - Dixon Cardenas MD Date/Time: 10/03/24 08:26 Surgeon: Dixon Cardenas MD Pre Op Diagnosis: Abnormal Uterine Bleeding Patient Data Age: 33 Gender: F Height: 1.5 m Weight: 69 kg Last Vital Signs Temp 98.3 F 10/03/24 08:00 Pulse 93 10/03/24 08:00 Resp 14 10/03/24 08:00 BP 111/78 10/03/24 08:00 Pulse Ox 99 10/03/24 08:00 O2 Del Method Room Air 10/03/24 08:00 Allergies Allergy/AdvReac Type Severity Reaction Status Date / Time amoxicillin Allergy Severe rash Verified 10/03/24 07:59 cefixime Allergy Severe light Verified 10/03/24 07:59 headed Penicillins Allergy Severe rash Verified 10/03/24 07:59 Home Medications ?Medication ?Instructions ?Recorded ?Confirmed ?Type No Home Medications 09/24/24 09/24/24 History Patient hx anesthesia problems: none Family hx anesthesia problems: none Results Review: All pre-operative results and documents have been reviewed as part of the pre-operative evaluation. [facility] Past Medical History Medical History Abnormal glucose tolerance in Suppression of menstruation Remove/insert IUD 03/17/20 insertion 10/28/20 removal delivery delivered 04/15/17 arrest of dilation Elbow fracture Ovarian cyst Depression Anxiety disorder Surgical History Surgical History Delivery by section (02/23/22) rpt c/s with bilateral salpingectomy Delivery by section (04/15/17) arrest of dilation History of placement of ear tubes 1994 bilateral Social History Social History Years smoked: 1 Smoking status: Former smoker Tobacco type: cigarettes Second hand tobacco smoke exposure: No Additional smoking assessment comments: STOPPED 2014 Alcohol intake: current Alcohol use details: 6 PER YR Substance use: never Substance use type: does not use Do You Feel Safe in your Home?: Yes Lack of Transportation: No Lack of Food: Never True Current Housing: I Have Housing Concerned About Future Housing: No Difficulty Paying Gas/Electric Bills: No Difficulty Paying for Meds: No Currently Unemployed: No Education: Associate Degree Difficulty w/ Childcare or Family Care: No Living arrangements: with family Additional living arrangements comments: spouse Occupation/Education: occupation 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 Gender identity (if verbalized by the patient): Female Sexual Orientation (if Verbalized by the Patient): Straight or Heterosexual Spiritual care concerns: No Anes - Eval Final PreProcedure Day of Procedure 10/03/24 08:26 Patient weight: obese Lungs: normal air movement Airway: Mallampati scale class II Neurological: alert and oriented Last oral intake: >/= 8 hours ASA classification: II Emergent: no Anesthetic plan: proceed Anesthesia type and monitoring: general GIVS and standard monitoring Results Review: All pre-operative results and documents have been reviewed as part of the pre-operative evaluation. Obesity BMI 30. Informed Consent: The patient's anesthetic plan and its attendant risks and benefits were discussed with the patient/family/POA. Questions were solicited and answers provided to the satisfaction of the patient/family/POA.
[2024-10-03] MEDS: ceFAZolin 2 GM/D5W 50 ML 2 GM/50 ML BAG IVPB (08:42)
[2024-10-03] MEDS: KETOROLAC 15 MG/ML VIAL (*BKC) IV PUSH (09:04)
[2024-10-03 09:09] VITALS: BP 96/36; PULSE 78; O2SAT 100
[2024-10-03 09:15] VITALS: BP 105/66; PULSE 64; RESP 14; O2SAT 100
[2024-10-03] MEDS: fentaNYL CITRATE INJ (*CRX) 100 MCG/2 ML VIAL 25 MCG IV PUSH (09:37)
[2024-10-03 09:45] VITALS: BP 118/85; PULSE 63; RESP 16
--- NOTE | 2024-10-03 09:57 | W.PM.PROC2 ---
Procedure Note - Detailed Date of Procedure 10/03/24 Pre-op Diagnosis 1. Menometrorrhagia 2. Dysmenorrhea Post-op Diagnosis Same Procedure Performed 1. Hysteroscopy with uterine curettings 2. Endometrial ablation Surgeon Dixon Cardenas MD Anesthesia MAC Findings Thickened endometrial cavity, no polyps or fibroids Description of Procedure Patient prepped and draped usual manner for this procedure. Cervix dilated to allow the hysteroscope to placed which revealed thickened tissue as above. Curettings were obtained with good sampling of all 4 quadrants. Ablation instrument was placed cavity assessment performed and instrument was activated. After cycle was performed hysteroscopic exam revealed good destruction throughout. There was no significant bleeding. Patient was sent to recovery room stable condition. Estimated Blood Loss 10 Drains No Packing No Pathology Yes Complications No immediate complications Condition Stable Disposition PACU [facility] Billing Surgery - Charge Forward: Surgery Billing
[2024-10-03] MEDS: oxyCODONE HCL (*CRX) 5 MG TAB IR PO (10:00)
[2024-10-03 10:15] VITALS: BP 133/90; PULSE 59; RESP 16
== END 2024-10-03 10:30 | disposition home or self-care (01) ==
PROVIDERS: PCP Family Medicine; Visit Provider Obstetrics & Gynecology
PROC: 0U5B8ZZ Destruction of Endometrium, Via Natural or Artificial Opening Endoscopic (ICD-10-PCS; CPT 58563; principal; 2024-10-03 08:30)
DX: N92.1 Excessive and frequent menstruation with irregular cycle (principal); N94.6 Dysmenorrhea, unspecified; Z87.891 Personal history of nicotine dependence; E66.9 Obesity, unspecified; Z68.30 Body mass index [BMI] 30.0-30.9, adult
CPT/HCPCS: 58563; 88305; A9270; J0690; J1885; J2003; J2250; J2405; J2704; J3010; J7120